=== PATIENT | female | born 1990 | race Caucasian/White ===

== ENCOUNTER 2019-05-22 18:25 | Inpatient (IN) | payer OTHER ==
[2019-05-22] MEDS ORDERED: CARBOPROST 250 MCG INJ IM (19:00)
[2019-05-22] MEDS ORDERED: OXYTOCIN 30 UNITS/LR 500 ML IV (19:00)
[2019-05-22] MEDS ORDERED: MISOPROSTOL 200 MCG TAB PR (19:00)
[2019-05-22] MEDS ORDERED: BUTORPHANOL 2 MG INJ IV (19:00)
[2019-05-22] MEDS ORDERED: METHYLERGONOVINE 0.2 MG INJ IM (19:00)
[2019-05-22] MEDS: LACTATED RINGER'S 1,000 ML IV ×2 (19:51→23:22)
[2019-05-22] MEDS: AMPICILLIN 2 GM/NS (PMX) 100 ML IV (20:03)
[2019-05-22] MEDS ORDERED: AMPICILLIN 1 GM/NS (PMX) 50 ML IV (23:00)
[2019-05-22] MEDS ORDERED: LACTATED RINGER'S 1,000 ML IV (23:06)
[2019-05-22] MEDS ORDERED: NALOXONE (0.4 MG/ML) INJ IV (23:30)
[2019-05-22] MEDS ORDERED: KETOROLAC 30 MG INJ IV (23:30)
[2019-05-22] MEDS ORDERED: ONDANSETRON 4 MG INJ IV (23:30)
[2019-05-22] MEDS ORDERED: DIPHENHYDRAMINE 50 MG INJ IV (23:30)
[2019-05-22] MEDS ORDERED: FENTAnyl 2MCG/ML-ROPIV 0.2% 100 ML BAG EPI (23:30)
[2019-05-22] MEDS ORDERED: HYDROmorphONE 0.5 MG/0.5 ML SYG IV ×2 (23:30)
[2019-05-22] MEDS: LIDOCAINE 1% (MPF) 30 ML INJ INJ (23:44)
[2019-05-22] MEDS: OXYTOCIN 30 UNITS/LR 500 ML IV ×2 (23:47→23:52)
[2019-05-23] MEDS: IBUPROFEN 600 MG TAB PO ×5 (00:12→23:37)
[2019-05-23] MEDS ORDERED: MISOPROSTOL 200 MCG TAB PR (02:00)
[2019-05-23] MEDS ORDERED: ZOLPIDEM 5 MG TAB PO (02:00)
[2019-05-23] MEDS ORDERED: OXYTOCIN 30 UNITS/LR 500 ML IV (02:00)
[2019-05-23] MEDS ORDERED: CARBOPROST 250 MCG INJ IM (02:00)
[2019-05-23] MEDS ORDERED: OXYCODONE/ASPIRIN (4.88/325) TAB PO ×2 (02:00)
[2019-05-23] MEDS ORDERED: METHYLERGONOVINE 0.2 MG INJ IM (02:00)
[2019-05-23] MEDS: WITCH HAZEL/GLYCERIN PAD PR (05:49)
[2019-05-23] MEDS: LANOLIN HPA 1 PKT TOP (05:49)
[2019-05-23] MEDS: BENZOCAINE 20% 56 ML SPRAY TOP (05:49)
[2019-05-23] MEDS: SENNA/DOCUSATE NA (8.6MG/50MG) TAB PO ×2 (09:54→23:37)
[2019-05-24] MEDS: IBUPROFEN 600 MG TAB PO ×3 (06:00→17:30)
[2019-05-24] MEDS: SENNA/DOCUSATE NA (8.6MG/50MG) TAB PO (10:30)
[2019-05-25] MEDS ORDERED: DIPHTH/TET/ACEL PERTUSS (ADULT) 0.5 ML VIAL IM* (09:00)
== END 2019-05-24 18:05 | disposition home or self-care (01) | DRG 807 ==
LOC: L-D 18:25 → PP1 05-23 01:23 → L-D 18:38
PROC: 0HQ9XZZ Repair Perineum Skin, External Approach (ICD-10-PCS; principal; 2019-05-22)
PROC: 10E0XZZ Delivery of Products of Conception, External Approach (ICD-10-PCS; 2019-05-22)
DX: O70.0 First degree perineal laceration during delivery (principal); O48.0 Post-term pregnancy; O99.214 Obesity complicating childbirth; Z37.0 Single live birth; Z3A.40 40 weeks gestation of pregnancy
CPT/HCPCS: 76815; 85025; 85610; 85730; 86592; 86850; 86900; 86901; 87340; 99464